=== PATIENT | female | born 1970 | race Two or more races ===

== ENCOUNTER 2022-05-05 11:05 | Day surgery (SDC) | payer OTHER ==
[2022-05-01 12:17] VITALS: BMI 28.3
[2022-05-05] MEDS ORDERED: ALBUTEROL SO4 HFA INHALER IH ONE (11:59)
[2022-05-05 14:03] VITALS: TEMP 98
[2022-05-05 14:05] VITALS: RESP 16
[2022-05-05 14:07] VITALS: BP 136/85; PULSE 84
== END 2022-05-05 13:15 | disposition home or self-care (01) ==
LOC: FASU-ENDO 11:05
PROVIDERS: ATTEND Internal Medicine Gastroenterology
PROC: 0DB68ZX Excision of Stomach, Via Natural or Artificial Opening Endoscopic, Diagnostic (ICD-10-PCS; 2022-05-05)
PROC: 0D748DZ Dilation of Esophagogastric Junction with Intraluminal Device, Via Natural or Artificial Opening Endoscopic (ICD-10-PCS; 2022-05-05)
PROC: 0DB98ZX Excision of Duodenum, Via Natural or Artificial Opening Endoscopic, Diagnostic (ICD-10-PCS; principal; 2022-05-05 12:05)
DX: K29.50 Unspecified chronic gastritis without bleeding (principal); R13.10 Dysphagia, unspecified; R12 Heartburn
CPT/HCPCS: 81025; 88305-TC; 88342-TC